=== PATIENT | female | born 1955 | race Caucasian/White ===

== ENCOUNTER 2024-05-29 05:14 | Emergency (ER) | payer MEDICARE, BC, SELFPAY ==
[2024-05-29] VITALS (7 sets, daily range): BP systolic 133–172; BP diastolic 65–104; BMI 34.1
[2024-05-29] MEDS: MORPHINE SULFATE 4 MG IV (05:54)
[2024-05-29] MEDS: ZOFRAN 4 MG IV (05:54)
[2024-05-29 06:02] LABS: Urine Albumin 1+ (Neg - Trace); Urine Bilirubin Negative (Negative); Urine Character Clear (Clear); Urine Color Yellow; Urine Glucose Negative (Negative); Urine Ketone Negative (Negative); Urine Leukocyte 1+ (Negative); Urine Nitrite Negative (Negative); Urine Occult Blood 1+ (Negative); Urine Specific Gravity 1.025 (<1.030); Urine Urobilinogen Negative (Neg - 1+)
[2024-05-29 06:07] LABS: % Basophils 0.2 % (0-2); % Immature Granulocytes 0.5 % (0-0.5); % Lymphocytes 5.9 % (20.5-51.1); % Monocytes 2.5 % (1.7-9.3); % Neutrophils 90.9 % (42.2-75.2); Absolute Immature Granulocytes 0.1 10^3/uL (0-0.05); Absolute Lymphocytes 0.7 10^3/uL (1.2-3.4); Absolute Monocytes 0.3 10^3/uL (0.1-0.6); Hematocrit 42.1 % (37.0-47.0); Mean Corp Hgb Conc. 33.3 g/dL (33.0-37.0); Mean Corpuscular Hgb 31.8 pg (27.0-31.0); Mean Corpuscular Volume 95.7 fL (81.0-99.0); Mean Platelet Volume 9.3 fL (7.4-10.4); Nucleated Red Blood Cells % 0 %; Platelet Count 173 10^3/uL (130-400); Red Cell Dist. Width 13.6 % (11.5-14.5)
[2024-05-29 06:23] LABS: Urine Squamous Cell 26-30 /LPF (Few)
[2024-05-29 06:24] LABS: ALT (SGPT) 23 U/L (0-35); AST (SGOT) 23 U/L (14-36); Albumin 4.1 g/dl (3.5-5.0); Alkaline Phosphatase 84 U/L (38-126); Blood Urea Nitrogen 19 mg/dl (7-17); Calcium 9.2 mg/dl (8.4-10.2); Carbon Dioxide 25 mmol/L (22-30); Chloride 104 mmol/L (98-107); Estimated Creatinine Clearance 68 ml/min; Glucose 189 mg/dl (70-99); Lipase 42 U/L (23-300); Potassium 3.8 mmol/L (3.5-5.1); Sodium 138 mmol/L (135-145); Total Bilirubin 0.5 mg/dl (0.2-1.3); Total Protein 6.8 g/dl (6.3-8.2); eGFR > 60.00
[2024-05-29 06:25] LABS: Urine Bacteria Moderate (Negative); Urine Mucus Moderate; Urine White Cell 50-60 /HPF (0-5)
--- NOTE | 2024-05-29 07:38 | ED.GENMED ---
History of Present Illness
General
Chief Complaint: Abdominal Pain
Source: patient
Exam Limitations: none
Time Seen by Provider: 05/29/24 07:27
History of Present Illness
History of Present Illness:
69-year-old female presents with sudden onset right abdominal pain that radiated to the back at midnight. She was sleeping when this started. She was initially pacing around trying to find a comfortable position but was unable to. She was
nauseous and vomited upon arrival here. There is no chest pain or shortness of breath. The pain is not pleuritic. No urinary symptoms. No prior abdominal surgical history. She was given morphine and Zofran earlier which seemed to help slightly
but the pain is returning. She does the pain is more of a constant pain. She had a cheese steak for dinner last night
Phy Exam
Physical Exam
Physical Exam:
General: Uncomfortable appearing female no acute respiratory distress
HEENT: Normocephalic atraumatic
Heart: Regular rate and rhythm
Lungs: Clear no wheeze
Abdomen is soft tender to the right mid abdomen also to the right upper quadrant. Positive Luna sign. There is right costovertebral angle tenderness
Extremities: No cyanosis or edema
Course
Orders/Labs/Results
Orders:
Orders
05/29/24 05:40
Complete Blood Count/With Diff Urgent
Comprehensive Metabolic Panel Urgent
Lipase Urgent
Urinalysis Reflex To Culture Urgent
Date Specimen was Collected: 05/29/24
Time Specimen was Collected: 05:28
Urine Microscopic Reflex Cult Urgent
Urine Culture Urgent
FORREST Source: U
Specimen Description:
Date Specimen was Collected: 05/29/24
Time Specimen was Collected: 05:28
05/29/24 05:52
Morphine Sulfate 4 mg .ROUTE .STK-MED ONE
Ondansetron Injectable [Zofran] 4 mg .ROUTE .STK-MED ONE
05/29/24 05:53
Ondansetron Injectable [Zofran] 4 mg IV NOW STA
05/29/24 05:54
Morphine Sulfate 4 mg IV NOW STA
05/29/24 07:36
Ketorolac [Toradol] 15 mg .ROUTE .STK-MED ONE
05/29/24 07:37
CT Abd/pel Without Iv Or Oral Urgent
Comment:
Reason For Exam: right abdominal pain
05/29/24 07:38
Ketorolac [Toradol] 15 mg IV NOW STA
05/29/24 09:07
0.9% Sodium Chloride 1000 ml [Nss] 1,000 ml IV BOLUS
Abnormal Lab Results
05/29/24
05:40
WBC 11.0 H 10^3/uL
(4.8-10.8)
MCH 31.8 H pg
(27.0-31.0)
Abs Immat Gran (auto) 0.1 H 10^3/uL
(0-0.05)
Absolute Neuts (auto) 10.0 H 10^3/uL
(1.4-6.5)
Absolute Lymphs (auto) 0.7 L 10^3/uL
(1.2-3.4)
Neutrophils % 90.9 H %
(42.2-75.2)
Lymphocytes % 5.9 L %
(20.5-51.1)
BUN 19 H mg/dl
(7-17)
Glucose 189 H mg/dl
(70-99)
Ur Occult Blood Reflex 1+ A
(Negative)
Leukocyte Esterase Rfl 1+ A
(Negative)
Urine RBC 3-6 A /HPF
(0-2)
Urine WBC (Reflex) 50-60 A /HPF
(0-5)
Urine Bacteria (Reflex) Moderate A
(Negative)
Urine Albumin (Reflex) 1+ A
(Neg - Trace)
03/19/25 05:40
05/29/24 05:40
Vital Signs
Initial and Last Documented VS:
Initial Vital Signs
Temp Pulse Resp BP Pulse Ox
97.7 F 80 22 172/100 98
05/29/24 05:18 05/29/24 05:18 05/29/24 05:18 05/29/24 05:18 05/29/24 05:18
Last Documented Vital Signs
Temp Pulse Resp BP Pulse Ox
97.7 F 86 18 139/79 85
05/29/24 05:18 05/29/24 07:27 05/29/24 07:27 05/29/24 10:00 05/29/24 10:00
MDM/Problems Addressed
Differential Diagnosis Includes:
Right abdominal pain. Differential could include biliary colic versus renal colic versus constipation or appendicitis. History suggests more of a restless sensation with this discomfort which I do expect to see with renal colic, there is blood in
the urine. However on exam, she is tender to the right upper quadrant. CT pending without IV contrast to evaluate for kidney stone versus gallstone. Toradol added for pain management.
*Critical Care Note
Total Time (30-74mins, 75-104mins- exclusive of procedures): Not Applicable
Update Note
Update Note:
CT shows some 3 to 4 mm stone in the right UVJ. Urinalysis likely contaminated specimen with large amount of squamous cells but culture is pending. Will not treat urine at this time. She is afebrile with stable vital signs. Feeling somewhat
better after treatment here. Recommend lots of fluids at home and pain management. Urology follow-up provided. Return precautions given
ED Attending Note
-
Portions of this chart may have been created with voice recognition software.� Occasional wrong word or��sound alike� substitutions may have occurred due to the inherent limitations of voice recognition software.
Discharge Plan
Departure
Patient Disposition: Home (Routine Discharge)
Date of Disposition: 05/29/24
Time of Disposition: 10:52
Patient with high blood pressure during this ER visit?: No
Discharge Problem:
Kidney stone
Instructions: Renal Colic (DC)
Prescriptions:
New
hydrocodone-acetaminophen 5-325 mg tablet
1 tab PO Q8H PRN (Reason: Pain) Qty: 10 0RF
ondansetron 4 mg tablet,disintegrating
4 mg PO Q8H PRN (Reason: nausea and vomiting) Qty: 10 0RF
No Action
levothyroxine [Synthroid] 25 MCG tablet
25 mcg PO DAILY
Claritin
1 tab PO PRN
Multivitamin
1 tab PO DAILY
Patient Comments:
'most of the time'
Vitamin E
1 tab PO DAILY
Patient Comments:
'sometimes'
Referrals:
Rafael Ferreira MD [Active] -
UNKNOWN - PT DOES,NOT KNOW [Family Provider] -
Activity Restrictions/Additional Instructions:
Drink plenty of fluids. Use pain medicine and nausea medicine as needed. Return here for fever vomiting increased pain or other concerning findings. Follow-up urology otherwise
Interventions
Interventions:
*Risk Screen - Suicide Last Done: 05/29/24 05:18
*General Assessment Last Done: 05/29/24 05:37
*Neglect/Abuse Screening Last Done: 05/29/24 05:18
*ED- Fall Risk Assessment Last Done: 05/29/24 05:37
*ED COVID-19 Vaccine History Last Done: 05/29/24 05:37
PW-Hcpllv-Tdbvpbjghy Assessment Last Done: 05/29/24 07:28
Discharge Date and Time
Print Language: YI
[2024-05-29] MEDS: TORADOL 15 MG IV (07:40)
[2024-05-29] MEDS: NSS 1000 IV (09:13)
== END 2024-05-29 12:51 | disposition home or self-care (01) ==
LOC: EMR 05:14
PROVIDERS: Student in an Organized Health Care Education/Training Program; EMERGENCY PHYSICIAN Emergency Medicine
DX: N13.2 Hydronephrosis with renal and ureteral calculous obstruction (principal)
CPT/HCPCS: 96374; 96375; 96361; 99284; 74176; 80053; 81003; 81015; 83690; 85025; 87086